=== PATIENT | male | born 1950 | race Caucasian/White ===

== ENCOUNTER 2017-03-23 03:12 | Emergency (ER) | payer BC ==
[2017-03-23] MEDS ORDERED: KETOROLAC 30 MG/ML 1 ML VIAL IVP STA (03:28)
[2017-03-23] MEDS ORDERED: ONDANSETRON 4 MG/2 ML VIAL IVP STA (03:28)
[2017-03-23] MEDS ORDERED: HYDROmorphone 1 MG/ML 1 ML SYRINGE IVP STA (03:28)
[2017-03-23] MEDS ORDERED: SODIUM CHLORIDE 0.9% 1,000 ML IV ONE (03:28)
--- NOTE | 2017-03-23 03:31 | ED ---
Abdominal Pain HPI - General Source: patient, RN notes reviewed Mode of arrival: ambulatory Limitations: no limitations <Baljit Peacock - Last Filed: 03/23/17 03:29> <Roberto Dwyer - Last Filed: 03/23/17 06:02> - General Chief Complaint: Abdominal Pain Stated Complaint: Flank Pain/Possible Kidney Time Seen by Provider: 03/23/17 03:20 - History of Present Illness Initial Comments: This a 66-year-old male presents emergency Department chief complaint right flank pain started yesterday. Patient states pain has not gotten any better. He states nothing makes the pain feel better or worse. He does have a history of kidney stones and states from what he remembers this seems similar. He states that he feels like he has to go to the bathroom but states he only has a little urine output. Denies any diarrhea or constipation. Patient had some nausea associated with the pain. Patient's been having hot and cold flashes but no known fever. He shouldn't denies chest pain, shortness breath, headache , dizziness. Patient had a prior hernia repair years ago. (Baljit Peacock) - Related Data Previous Rx's Medication Instructions Recorded Hydrocodone/Acetaminophen [[place] 1 each PO Q4HR PRN #12 tab 03/23/17 5-325] Allergies Allergy/AdvReac Type Severity Reaction Status Date / Time lactose AdvReac Nausea & Verified 03/23/17 03:19 Vomiting Review of Systems ROS Other: All systems not noted in ROS Statement are negative. <Baljit Peacock - Last Filed: 03/23/17 03:29> ROS Other: All systems not noted in ROS Statement are negative. <Roberto Dwyer - Last Filed: 03/23/17 06:02> ROS Statement: Those systems with pertinent positive or pertinent negative responses have been documented in the HPI. Past Medical History Past Medical History: No Reported History History of Any Multi-Drug Resistant Organisms: None Reported Additional Past Surgical History / Comment(s): ENT Past Psychological History: No Psychological Hx Reported Smoking Status: Never smoker Past Alcohol Use History: None Reported Past Drug Use History: None Reported <Baljit Peacock - Last Filed: 03/23/17 03:29> General Exam Limitations: no limitations General appearance: alert, in no apparent distress Head exam: Present: atraumatic, normocephalic, normal inspection Respiratory exam: Present: normal lung sounds bilaterally. Absent: respiratory distress, wheezes, rales, rhonchi, stridor Cardiovascular Exam: Present: regular rate, normal rhythm, normal heart sounds. Absent: systolic murmur, diastolic murmur, rubs, gallop, clicks GI/Abdominal exam: Present: soft, tenderness (Minimal right-sided), normal bowel sounds. Absent: distended, guarding, rebound, rigid Back exam: Present: CVA tenderness (R) (Mild). Absent: CVA tenderness (L) Neurological exam: Present: alert, oriented X3, CN II-XII intact Skin exam: Present: warm, dry, intact, normal color. Absent: rash <Baljit Peacock - Last Filed: 03/23/17 03:29> Medical Decision Making <Baljit Peacock - Last Filed: 03/23/17 03:29> - Lab Data Result diagrams: 03/23/17 03:36 03/23/17 03:36 - Radiology Data Radiology results: report reviewed (Computed tomography scan abdomen pelvis shows 2 mm calculi right posterior bladder, likely passed stone. Mild hydroureter.), image reviewed (KUB shows no acute process) <Roberto Dwyer - Last Filed: 03/23/17 06:02> - Medical Decision Making Patient reexamined twice by myself, Dr. Dwyer. Patient symptom-free at this time. Patient states symptoms were similar to previous kidney stone. Computed tomography scan was obtained. Patient and family were updated on results. ( Roberto Dwyer) - Lab Data Lab Results 03/23/17 03/23/17 03/23/17 Range/Units 03:36 03:36 03:36 WBC 12.1 H (3.8-10.6) k/uL RBC 5.30 (4.30-5.90) m/uL Hgb 16.9 (13.0-17.5) gm/dL Hct 49.3 (39.0-53.0) % MCV 93.0 (80.0-100.0) fL MCH 31.9 (25.0-35.0) pg MCHC 34.3 (31.0-37.0) g/dL RDW 13.8 (11.5-15.5) % Plt Count 187 (150-450) k/uL Neutrophils % 84 % Lymphocytes % 11 % Monocytes % 2 % Eosinophils % 1 % Basophils % 0 % Neutrophils # 10.2 H (1.3-7.7) k/uL Lymphocytes # 1.3 (1.0-4.8) k/uL Monocytes # 0.3 (0-1.0) k/uL Eosinophils # 0.2 (0-0.7) k/uL Basophils # 0.1 (0-0.2) k/uL Sodium 139 (137-145) mmol/L Potassium 5.1 (3.5-5.1) mmol/L Chloride 105 (98-107) mmol/L Carbon Dioxide 23 (22-30) mmol/L Anion Gap 11 mmol/L BUN 28 H (9-20) mg/dL Creatinine 1.20 (0.66-1.25) mg/dL Est GFR (MDRD) Af Amer >60 (>60 ml/min/1.73 sqM) Est GFR (MDRD) Non-Af >60 (>60 ml/min/1.73 sqM) Glucose 166 H (74-99) mg/dL Calcium 10.1 (8.4-10.2) mg/dL Total Bilirubin 1.4 H (0.2-1.3) mg/dL AST 44 (17-59) U/L ALT 61 (21-72) U/L Alkaline Phosphatase 76 (38-126) U/L Total Protein 7.9 (6.3-8.2) g/dL Albumin 4.8 (3.5-5.0) g/dL Amylase 37 (30-110) U/L Lipase 188 (23-300) U/L Urine Color Yellow Urine Appearance Clear (Clear) Urine pH 8.0 (5.0-8.0) Ur Specific [place] 1.022 (1.001-1.035) Urine Protein Negative (Negative) Urine Glucose (UA) Negative (Negative) Urine Ketones Negative (Negative) Urine Blood Negative (Negative) Urine Nitrite Negative (Negative) Urine Bilirubin Negative (Negative) Urine Urobilinogen <2.0 (<2.0) mg/dL Ur Leukocyte Esterase Negative (Negative) Disposition <Baljit Peacock - Last Filed: 03/23/17 03:29> Time of Disposition: 06:02 <Roberto Dwyer - Last Filed: 03/23/17 06:02> Clinical Impression: Ureterolithiasis Disposition: HOME SELF-CARE Condition: Stable Instructions: Kidney Stones (ED) Additional Instructions: Please follow-up to in the next couple days for recheck. Return for increased pain, fever, unable to urinate, worsening symptoms or other concerns. Prescriptions: Hydrocodone/Acetaminophen [B[place] 5-325] 1 each PO Q4HR PRN #12 tab PRN Reason: Pain Referrals: Juan Ray MD [Primary Care Provider] - 1-2 days
[2017-03-23 03:50] LABS: Basophils # (A) 0.1 k/uL (0-0.2); Basophils % (A) 0 %; CH 33.3; Eosinophils # (A) 0.2 k/uL (0-0.7); Eosinophils % (A) 1 %; HCT 49.3 % (39.0-53.0); HDW 2.78; HGB 16.9 gm/dL (13.0-17.5); Luc % (Auto) 1; Lymphocytes # (A) 1.3 k/uL (1.0-4.8); Lymphocytes % (A) 11 %; MCH 31.9 pg (25.0-35.0); MCHC 34.3 g/dL (31.0-37.0); Mean Platelet Volume 8.9; Monocytes # (A) 0.3 k/uL (0-1.0); Monocytes % (A) 2 %; Neutrophils # (A) 10.2 k/uL (1.3-7.7); Neutrophils % (A) 84 %; RDW 13.8 % (11.5-15.5); WBC 12.1 k/uL (3.8-10.6); WBC (Perox) 12.46
[2017-03-23 03:59] LABS: ALT 61 U/L (21-72); AST 44 U/L (17-59); Alkaline Phosphatase 76 U/L (38-126); Amylase 37 U/L (30-110); Anion Gap 11 mmol/L; Blood Urea Nitrogen 28 mg/dL (9-20); Calcium 10.1 mg/dL (8.4-10.2); Carbon Dioxide 23 mmol/L (22-30); Chloride 105 mmol/L (98-107); Glucose 166 mg/dL (74-99); Non-African American GFR(MDRD) >60 (>60 ml/min/1.73 sqM); Potassium 5.1 mmol/L (3.5-5.1); Sodium 139 mmol/L (137-145); Total Bilirubin 1.4 mg/dL (0.2-1.3); Total Protein 7.9 g/dL (6.3-8.2)
--- NOTE | 2017-03-23 04:00 | XR ---
EXAM: XR KUB, 1 View CLINICAL HISTORY: Reason: abdominal pain TECHNIQUE: Frontal supine view of the abdomen/pelvis. COMPARISON: No relevant prior studies available. FINDINGS: Gastrointestinal tract: Unremarkable. No dilation. No abnormal abdominal calcifications. Bones/joints: Unremarkable. IMPRESSION: Normal KUB x-ray.
[2017-03-23 04:38] LABS: Appearance,Urine Clear (Clear); Bilirubin,Urine Negative (Negative); Glucose,Urine (UA) Negative (Negative); Ketones,Urine Negative (Negative); Leukocyte Esterase,Urine Negative (Negative); Nitrite,Urine Negative (Negative); Protein,Urine Negative (Negative); Specific Gravity,Urine 1.022 (1.001-1.035); UA Billing (MACRO vs. MICRO) CHEM; Urobilinogen,Urine <2.0 mg/dL (<2.0)
--- NOTE | 2017-03-23 05:45 | CT ---
EXAM: CT Abdomen and Pelvis Without Intravenous Contrast CLINICAL HISTORY: Reason: Pain TECHNIQUE: Axial computed tomography images of the abdomen and pelvis without intravenous contrast. DLP is 1010.50 mGy-cm. This CT exam was performed using one or more of the following dose reduction techniques: automated exposure control, adjustment of the mA and/or kV according to patient size, and/or use of iterative reconstruction technique. COMPARISON: No relevant prior studies available. FINDINGS: Lower thorax: No acute findings. ABDOMEN: Liver: Scattered cysts noted in the liver. Gallbladder and bile ducts: Cholelithiasis. No ductal dilation. Pancreas: Unremarkable. No ductal dilation. Spleen: Unremarkable. No splenomegaly. Adrenals: Unremarkable. No mass. Kidneys and ureters: Simple cortical cysts noted in the lower pole of the right kidney and the upper pole of the left kidney respectively. Mild right hydroureter. There is a 2 mm calculus in the posterior lateral aspect of the right urinary bladder, possibly impacted. Stomach and bowel: Scattered colonic diverticulosis. No obstruction. No mucosal thickening. Appendix: No findings to suggest acute appendicitis. PELVIS: Bladder: See above. Reproductive: Unremarkable as visualized. ABDOMEN and PELVIS: Intraperitoneal space: Unremarkable. No free air. No significant fluid collection. Bones/joints: No acute fracture. No dislocation. Soft tissues: Unremarkable. Vasculature: Unremarkable. No abdominal aortic aneurysm. Lymph nodes: Unremarkable. No enlarged lymph nodes. IMPRESSION: Mild right hydroureter. There is a 2 mm calculus in the posterior lateral aspect of the right urinary bladder which may be impacted in this location or may have recently passed into the urinary bladder.
[2017-03-23 06:09] VITALS: BP 139/79; PULSE 76; RESP 16; TEMP 98.7
== END 2017-03-23 06:10 | disposition home or self-care (01) ==
LOC: EC 03:12
DX: N20.1 Calculus of ureter (principal); Z91.048 Other nonmedicinal substance allergy status
CPT/HCPCS: 99284; 96374; 96375 ×2; 96361 ×2; 36415; 80053; 82150; 83690; 85025; 81003; 74000; 74176; J2405; J1885; J1170

== ENCOUNTER 2019-03-10 08:06 | Day surgery (SDC) | payer BC, MEDICARE ==
[2019-03-08 12:35] VITALS: BMI 35.1
--- NOTE | 2019-03-10 07:34 | P.GSHP ---
History of Present Illness H&P Date: 03/10/19 CHIEF COMPLAINT: Colon screen HISTORY OF PRESENT ILLNESS: The patient is a 68-year-old male who presents for colon screen. Lower endoscopy was offered for further evaluation and management. PAST MEDICAL HISTORY: Please see list. PAST SURGICAL HISTORY: Please see list. MEDICATIONS: Please see list. ALLERGIES: Please see list. SOCIAL HISTORY: No illicit drug use FAMILY HISTORY: No reports of Crohn disease or ulcerative colitis. REVIEW OF ORGAN SYSTEMS: CONSTITUTIONAL: No reports of fevers or chills. PHYSICAL EXAM: VITAL SIGNS: Stable GENERAL: Well-developed pleasant in no acute distress. HEENT: No scleral icterus. Extraocular movements grossly intact. Moist buccal mucosa. NECK: Supple without lymphadenopathy. CHEST: Unlabored respirations. Equal bilateral excursions. CARDIOVASCULAR: Regular rate and rhythm. Distal 2+ pulses. ABDOMEN: Soft, nontender, nondistended. MUSCULOSKELETAL: No clubbing, cyanosis, or edema. ASSESSMENT: 1. Colon screen. PLAN: 1. Recommend proceeding with a lower endoscopy Past Medical History Past Medical History: Hyperlipidemia, Sleep Apnea/CPAP/BIPAP Additional Past Medical History / Comment(s): Recent dental procedure, now having sore gums, on Amoxicillin. Diverticulitisis, hx kidney stone X2, does not use CPAP. History of Any Multi-Drug Resistant Organisms: None Reported Past Surgical History: Hernia Repair Additional Past Surgical History / Comment(s): ENT surgery for sleep apnea, 3-4 colonoscopies with polyps removed. Past Anesthesia/Blood Transfusion Reactions: No Reported Reaction Past Psychological History: No Psychological Hx Reported Smoking Status: Never smoker Past Alcohol Use History: None Reported Past Drug Use History: None Reported - Past Family History Father Additional Family Medical History / Comment(s): Aneurysym. Medications and Allergies Home Medications Medication Instructions Recorded Confirmed Type Amoxicillin 875 mg PO BID 03/08/19 03/08/19 History Decongestant 0.5 tab PO BID 03/08/19 03/08/19 History Loratadine-Pseudoeph 10-240 mg 1 each PO DAILY 03/08/19 03/08/19 History [Claritin-D 24 Hr] [place]-3 Fatty Acids/Fish Oil [Fish 1 each PO DAILY 03/08/19 03/08/19 History Oil 1,000 mg Softgel] Allergies Allergy/AdvReac Type Severity Reaction Status Date / Time lactose AdvReac Nausea & Verified 03/08/19 12:18 Vomiting
[~2019-03-10 08:06] MED LIST: LACTATED RINGERS 1,000 ML IV SCH; LIDOCAINE 1% 20 ML VIAL (10MG/ML) FOR IV START INTRADERMA PRN; MIDAZOLAM 2 MG/2 ML VIAL IV PRN
[2019-03-10 08:27] VITALS: TEMP 98.1
[2019-03-10 08:40] LABS: Glucose,Whole Blood 113 mg/dL (75-99)
[2019-03-10] MEDS ORDERED: PROPOFOL 10 MG/ML 20 ML VIAL IV ONE (08:58)
--- NOTE | 2019-03-10 09:24 | P.PCN ---
Date of Procedure: 03/10/19 Description of Procedure: PREOPERATIVE DIAGNOSIS: Personal history of colon polyps Family history colon cancer Diverticulosis Colonoscopy screening POSTOPERATIVE DIAGNOSIS: Ascending colon polyp Personal history of colon polyps Family history colon cancer Diverticulosis Colonoscopy screening OPERATION: Colonoscopy with cold forceps biopsy ascending colon for polypectomy Colonoscopy to the ileocecal valve SURGEON: Apoorva Sultana MD. ANESTHESIA: MAC. INDICATIONS: The patient is a 68-year-old male who presents for colonoscopy screening. Last colonoscopy 5 years ago. Benefits and risks were described and informed consent was obtained. DESCRIPTION OF PROCEDURE: The patient had undergone GOLYTELY prep. He had been brought into the operating room and laid in the left lateral decubitus position. After adequate intravenous sedation, the rectum was examined with 2% lidocaine jelly. No external hemorrhoids were encountered. The prostate was unremarkable. The rectal tone was within normal limits. No lesions were palpated in the rectal vault. An Olympus colonoscope was advanced until the ileocecal valve and appendiceal orifice were clearly viewed. The prep was excellent with clear visualization of the mucosal folds. The scope was removed with visualization of each mucosal fold. Scattered diverticulosis was encountered. At ascending colon, 3 mm hyperplastic polyp was cold forceps biopsy. No evidence of focal colitis was found. Retroflexion of the scope demonstrated no internal hemorrhoids without active bleeding or inflammation. The colon was desufflated. The patient had tolerated the procedure well. Withdrawal time was over 6 minutes. FINDINGS: [place]ronchick preparation quality scale 1 (1-5) No internal hemorrhoids No external prolapsed hemorrhoids. No arteriovenous malformations. Moderate scattered diverticulosis without diverticulitis Redundant sigmoid colon requiring abdominal wall pressure No focal colitis Removal of 1 polyp: -At ascending colon, 3 mm hyperplastic polyp was cold forceps biopsy. RECOMMENDATIONS: Lower endoscopy in 5 years, 2023 Plan - Discharge Summary Discharge Rx Participant: No New Discharge Prescriptions: No Action Loratadine-Pseudoeph 10-240 mg [Claritin-D 24 Hr] 1 each PO DAILY Amoxicillin 875 mg PO BID Decongestant 0.5 tab PO BID [place]-3 Fatty Acids/Fish Oil [Fish Oil 1,000 mg Softgel] 1 each PO DAILY Discharge Medication List Amoxicillin 875 mg PO BID 03/08/19 [History] Decongestant 0.5 tab PO BID 03/08/19 [History] Loratadine-Pseudoeph 10-240 mg [Claritin-D 24 Hr] 1 each PO DAILY 03/08/19 [History] [place]-3 Fatty Acids/Fish Oil [Fish Oil 1,000 mg Softgel] 1 each PO DAILY 03/08/19 [History] Follow up Appointment(s)/Referral(s): Apoorva Sultana MD [STAFF PHYSICIAN] - As Needed Patient Instructions/Handouts: Diverticulosis (DC), Colorectal Polyps (DC), Diverticulosis Diet (GEN) Activity/Diet/Wound Care/Special Instructions: Repeat colonoscopy 5 years, 2023. RESUME FISH OIL 03/13/19 Discharge Disposition: HOME SELF-CARE
[2019-03-10 09:44] VITALS: BP 108/56; PULSE 66; RESP 16
== END 2019-03-10 10:09 | disposition home or self-care (01) ==
LOC: ORWHC2ENDO 08:06
PROVIDERS: ATTEND Surgery Plastic and Reconstructive Surgery
DX: Z12.11 Encounter for screening for malignant neoplasm of colon (principal); K57.90 Diverticulosis of intestine, part unspecified, without perforation or abscess without bleeding; D12.2 Benign neoplasm of ascending colon; Z80.0 Family history of malignant neoplasm of digestive organs; Z86.010 Personal history of colon polyps; E78.5 Hyperlipidemia, unspecified; Z79.2 Long term (current) use of antibiotics; Z79.899 Other long term (current) drug therapy; Z88.8 Allergy status to other drugs, medicaments and biological substances; G47.33 Obstructive sleep apnea (adult) (pediatric)
CPT/HCPCS: 88305; 45380; J2704

== ENCOUNTER → 2019-03-12 | Outpatient (CLI) | payer MEDICARE ==
--- NOTE | 2019-03-12 13:36 | CT ---
EXAMINATION TYPE: CT sinus wo con DATE OF EXAM: 03/12/2019 COMPARISON: None HISTORY: Allergies and chronic sinusitis CT DLP: 603.0 mGycm CONTRAST: 0 mL of Isovue 300 The paranasal sinuses are examined in the axial plane at 2 mm thick sections. Reconstructed images i n the coronal plane were obtained. There is dental amalgam scatter artifact The maxillary sinuses are clear. The ethmoid air cells are clear. The sphenoid sinuses are clear. The frontal sinuses are clear. The septum is evaluated. There is septal deviation to the left. The ostiomeatal units are patent. IMPRESSIONS: 1. Normal paranasal sinus study.
== END | disposition home or self-care (01) ==
LOC: RADCTMAIN 12:23
PROVIDERS: ATTEND Otolaryngology
DX: J32.9 Chronic sinusitis, unspecified (principal)
CPT/HCPCS: 70486

== ENCOUNTER 2019-06-11 05:37 | Emergency (ER) | payer MEDICARE ==
[2019-06-11] MEDS ORDERED: KETOROLAC 30 MG/ML 1 ML VIAL IVP STA (06:23)
[2019-06-11 06:24] LABS: Basophils % (A) 0 %; Eosinophils % (A) 0 %; HCT 47.3 % (39.0-53.0); HGB 16.4 gm/dL (13.0-17.5); Lymphocytes # (A) 0.9 k/uL (1.0-4.8); Lymphocytes % (A) 7 %; MCH 32.4 pg (25.0-35.0); MCHC 34.8 g/dL (31.0-37.0); Mean Platelet Volume 6.2; Monocytes # (A) 0.3 k/uL (0-1.0); Monocytes % (A) 2 %; Neutrophils # (A) 10.8 k/uL (1.3-7.7); Neutrophils % (A) 90 %; Platelet Count 199 k/uL (150-450); RBC 5.08 m/uL (4.30-5.90); RDW 12.2 % (11.5-15.5); WBC 12.1 k/uL (3.8-10.6)
[2019-06-11 06:33] LABS: Albumin 4.3 g/dL (3.5-5.0); Calcium 9.5 mg/dL (8.4-10.2); Potassium 4.4 mmol/L (3.5-5.1); Total Bilirubin 1.6 mg/dL (0.2-1.3); Total Protein 7.1 g/dL (6.3-8.2)
--- NOTE | 2019-06-11 06:37 | ED ---
General Adult HPI - General Source: patient, RN notes reviewed Mode of arrival: ambulatory Limitations: no limitations <Mayco Roach - Last Filed: 06/11/19 07:33> <Sharan Bragg - Last Filed: 06/11/19 11:11> - General Chief complaint: Abdominal Pain Stated complaint: Constipation/Nausea Time Seen by Provider: 06/11/19 06:13 - History of Present Illness Initial comments: 68-year-old male with a past medical history of diverticulosis presents to the emergency department for lower abdominal pain. Patient states it has been ongoing for about 6 hours. Patient states he thinks he is constipated. States he usually has a bowel movement daily. However yesterday he did not have a bowel movement. Patient states that around midnight he had a small episode of diarrhea. States he had his give him an enema because he thought he needed to have a bowel movement and did have a few small bowel movements. Patient states he did vomit once. Denies fevers or chills.Patient has no other complaints at this time including shortness of breath, chest pain, nausea or vomiting, headache, or visual changes. (Mayco Roach) - Related Data Home Medications Medication Instructions Recorded Confirmed [place]-3 Fatty Acids/Fish Oil [Fish 1 cap PO DAILY 03/08/19 06/11/19 Oil 1,000 mg Softgel] Cholecalciferol [Vitamin D3 (25 1,000 unit PO DAILY 06/11/19 06/11/19 Mcg = 1000 Iu)] Fluticasone Nasal [place] [Flonase 1 spray EA NOSTRIL HS 06/11/19 06/11/19 Nasal [place]] Magnesium 200 mg PO DAILY 06/11/19 06/11/19 Montelukast [Singulair] 10 mg PO HS 06/11/19 06/11/19 Allergies Allergy/AdvReac Type Severity Reaction Status Date / Time lactose AdvReac Nausea & Verified 06/11/19 07:52 Vomiting Review of Systems ROS Other: All systems not noted in ROS Statement are negative. <Mayco Roach - Last Filed: 06/11/19 07:33> ROS Other: All systems not noted in ROS Statement are negative. <Sharan Bragg - Last Filed: 06/11/19 11:11> ROS Statement: Those systems with pertinent positive or pertinent negative responses have been documented in the HPI. Past Medical History Past Medical History: No Reported History Additional Past Medical History / Comment(s): diverticulosis History of Any Multi-Drug Resistant Organisms: None Reported Additional Past Surgical History / Comment(s): ENT Past Psychological History: No Psychological Hx Reported Smoking Status: Never smoker Past Alcohol Use History: None Reported Past Drug Use History: None Reported <Mayco Roach - Last Filed: 06/11/19 07:33> General Exam Limitations: no limitations General appearance: alert, in no apparent distress Head exam: Present: atraumatic, normocephalic, normal inspection Eye exam: Present: normal appearance, PERRL, EOMI. Absent: scleral icterus, conjunctival injection, periorbital swelling ENT exam: Present: normal exam, mucous membranes moist Neck exam: Present: normal inspection, full ROM. Absent: tenderness, meningismus, lymphadenopathy Respiratory exam: Present: normal lung sounds bilaterally. Absent: respiratory distress, wheezes, rales, rhonchi, stridor Cardiovascular Exam: Present: regular rate, normal rhythm, normal heart sounds. Absent: systolic murmur, diastolic murmur, rubs, gallop, clicks GI/Abdominal exam: Present: soft, normal bowel sounds. Absent: distended, tenderness (No tenderness of the abdomen whatsoever), guarding, rebound, rigid Expanded GI/Abdominal exam: Absent: psoas sign, obturator sign, heel tap sign, Henderson's sign, Rovsing's sign, tenderness at [place]'s Point, ascites Neurological exam: Present: alert <Mayco Roach - Last Filed: 06/11/19 07:33> Course <Sharan Bragg - Last Filed: 06/11/19 11:11> Vital Signs 06/11/19 06/11/19 06/11/19 05:43 06:47 07:55 Temperature 97.8 F 97.7 F Pulse Rate 92 72 76 Respiratory 20 16 18 Rate Blood Pressure 142/87 154/89 142/84 O2 Sat by Pulse 97 96 98 Oximetry - Reevaluation(s) Reevaluation #1: 06/11/19 11:10 PA supervision: I did personally evaluate the case and did discuss the findings. Patient does present with hematuria as well as flank and abdominal pain. The presentation is consistent with a kidney stone he is cautioned come back if any issues continue. I did review the workup. I do agree with the assessment and plan. (Sharan Bragg) Medical Decision Making - Lab Data Result diagrams: 06/11/19 06:14 06/11/19 06:14 <Mayco Roach - Last Filed: 06/11/19 07:33> - Lab Data Result diagrams: 06/11/19 06:14 06/11/19 06:14 <Sharan Bragg - Last Filed: 06/11/19 11:11> - Medical Decision Making 68-year-old male presents to the emergency department for possible constipation. Patient states he feels as if he needs to have a bowel movement. States he did vomit once and has been trying to have a bowel movement all night. States he did have several small bowel movements. Vitals are stable. Patient is afebrile. Denies history of fevers at home. Examination is benign. Patient has no abdominal tenderness whatsoever. No CVA tenderness. He is complaining of some mild left flank pain but states this feels nothing like his kidney stone from 2 years ago. CBC was obtained which shows a white count 12.1 which is likely reactive in nature. CMP does show evidence of some mild dehydration, patient was given a liter of fluids. Urinalysis shows moderate blood. I did obtain an x-ray which shows paucity of bowel gas, could be secondary to gastroenteritis. I recommended a CAT scan at this time to further evaluate the bowel as well as the possibility of a kidney stone. However patient states his pain is at a 0 right now and he would rather go home and return if he has worsening of symptoms. Refuses CAT scan. Patient will be discharged to follow up with primary care. He will return if he has any worsening symptoms. (Mayco Roach) - Lab Data Lab Results 06/11/19 06/11/19 06/11/19 Range/Units 06:14 06:14 06:47 WBC 12.1 H (3.8-10.6) k/uL RBC 5.08 (4.30-5.90) m/uL Hgb 16.4 (13.0-17.5) gm/dL Hct 47.3 (39.0-53.0) % MCV 93.0 (80.0-100.0) fL MCH 32.4 (25.0-35.0) pg MCHC 34.8 (31.0-37.0) g/dL RDW 12.2 (11.5-15.5) % Plt Count 199 (150-450) k/uL Neutrophils % 90 % Lymphocytes % 7 % Monocytes % 2 % Eosinophils % 0 % Basophils % 0 % Neutrophils # 10.8 H (1.3-7.7) k/uL Lymphocytes # 0.9 L (1.0-4.8) k/uL Monocytes # 0.3 (0-1.0) k/uL Eosinophils # 0.0 (0-0.7) k/uL Basophils # 0.0 (0-0.2) k/uL Sodium 140 (137-145) mmol/L Potassium 4.4 (3.5-5.1) mmol/L Chloride 107 (98-107) mmol/L Carbon Dioxide 24 (22-30) mmol/L Anion Gap 9 mmol/L BUN 29 H (9-20) mg/dL Creatinine 1.55 H (0.66-1.25) mg/dL Est GFR (CKD-EPI)AfAm 53 (>60 ml/min/1.73 sqM) Est GFR (CKD-EPI)NonAf 46 (>60 ml/min/1.73 sqM) Glucose 143 H (74-99) mg/dL Calcium 9.5 (8.4-10.2) mg/dL Total Bilirubin 1.6 H (0.2-1.3) mg/dL AST 47 (17-59) U/L ALT 76 H (21-72) U/L Alkaline Phosphatase 50 (38-126) U/L Total Protein 7.1 (6.3-8.2) g/dL Albumin 4.3 (3.5-5.0) g/dL Amylase 47 (30-110) U/L Lipase 186 (23-300) U/L Urine Color Yellow Urine Appearance Turbid (Clear) Urine pH 5.5 (5.0-8.0) Ur Specific [place] 1.029 (1.001-1.035) Urine Protein Trace H (Negative) Urine Glucose (UA) Negative (Negative) Urine Ketones Negative (Negative) Urine Blood Moderate H (Negative) Urine Nitrite Negative (Negative) Urine Bilirubin Negative (Negative) Urine Urobilinogen 2.0 (<2.0) mg/dL Ur Leukocyte Esterase Negative (Negative) Urine RBC 10 H (0-5) /hpf Urine WBC 1 (0-5) /hpf Hyaline Casts 1 (0-2) /lpf Urine Mucus Rare H (None) /hpf Disposition Is patient prescribed a controlled substance at d/c from ED?: No Time of Disposition: 07:40 <Mayco Roach - Last Filed: 06/11/19 07:33> <Sharan Bragg - Last Filed: 06/11/19 11:11> Clinical Impression: Abdominal pain Disposition: HOME SELF-CARE Condition: Good Instructions (If sedation given, give patient instructions): Abdominal Pain (ED) Additional Instructions: Please follow up with primary care in 1-2 days. If you have worsening symptoms be sure to return to the emergency department for further evaluation. Referrals: Juan Ray MD [Primary Care Provider] - 1-2 days
--- NOTE | 2019-06-11 06:39 | XR ---
EXAM: XR Abdomen, 2 Views CLINICAL HISTORY: ITS.REASON XR Reason: abdominal pain TECHNIQUE: Frontal view of the abdomen/pelvis with upright view of the abdomen. COMPARISON: Radiographs dated 03/23/[address] abdomen pelvis dated 03/23/17 FINDINGS: Intraperitoneal space: No free air. Gastrointestinal tract: Suboptimal evaluation of the bowel gas pattern due to paucity of bowel gas. No obvious bowel dilatation. Bones/joints: Degenerative changes of the spine. IMPRESSION: Suboptimal evaluation of the bowel gas pattern due to paucity of bowel gas. No obvious bowel dilatation.
[2019-06-11] MEDS ORDERED: SODIUM CHLORIDE 0.9% 1,000 ML IV STA (06:56)
[2019-06-11 07:18] LABS: Appearance,Urine Turbid (Clear); Bilirubin,Urine Negative (Negative); Blood,Urine Moderate (Negative); Color,Urine Yellow; Glucose,Urine (UA) Negative (Negative); Hyaline Casts,Urine 1 /lpf (0-2); Ketones,Urine Negative (Negative); Leukocyte Esterase,Urine Negative (Negative); Mucus,Urine Rare /hpf; Nitrite,Urine Negative (Negative); PH, Urine 5.5 (5.0-8.0); Protein,Urine Trace (Negative); RBC,Urine 10 /hpf (0-5); Specific Gravity,Urine 1.029 (1.001-1.035)
[2019-06-11 08:39] VITALS: BP 142/84; PULSE 76; RESP 18; TEMP 97.7
== END 2019-06-11 07:55 | disposition home or self-care (01) ==
LOC: EC 05:37
DX: R10.30 Lower abdominal pain, unspecified (principal); E86.0 Dehydration; R31.9 Hematuria, unspecified; R11.10 Vomiting, unspecified; Z91.018 Allergy to other foods; Z53.20 Procedure and treatment not carried out because of patient's decision for unspecified reasons
CPT/HCPCS: 99284; 96374; 96361; 36415; 80053; 82150; 83690; 85025; 81001; 74018; J1885

== ENCOUNTER → 2023-01-20 | Outpatient (CLI) | payer MEDICARE ==
[2023-01-20 13:03] VITALS: BP 157/81; PULSE 72; RESP 18; TEMP 98.9
--- NOTE | 2023-01-20 14:32 | P.PAINPG ---
PQRS Measure Charge Sheet Comment: HISTORY OF PRESENT ILLNESS: 72 yr old as a referral from Dr Ray presents today w severe and chronic facial pain secondary to Trigeminal Neuralgia for evaluation. Pt states pain level is provoked at 6 /10 in intensity, constant, localized in the L side of his face, throbbing, pressure in character w/o shooting pain. Pain is provoked by chewing or brushing teeth. Pain is alleviated by medications (Neurontin, Tyl), massaging, repositioning and rest. Oswestry pain score at 7. PMH: OA, JUDIE, Hyperlipidemia PSH: Colonoscopy x4 w Polypectomies (2019), Hernia Repair SH: Negative x3 FH: Fa- Aneurysm All: See list Meds: See list REVIEW OF ORGAN SYSTEMS: CONSTITUTIONAL: No fevers or chills. No recent weight loss. NEUROLOGICAL: + numbness and tingling along the distal extremities. No seizure disorders or headaches. MUSCULOSKELETAL: + pain PSYCHIATRIC: Denies current depression or suicidal thoughts. Physical Examinations : Constitutional : Cooperative , not in acute distress . Neurologic : Cranial nerve II to XII intact. No focal neurological deficits. Psychiatric : alert & oriented x 3. Matching mood & appropriate affect. Judgment & insight intact. Musculoskeletal : Cervical Spine Motor strength in the deltoid and biceps: Normal right side. Normal Left side Motor strength biceps and the wrist extensors: Normal right side . Normal left side Motor strength in the triceps muscle: Normal right side. Normal left side Deep tendon reflexes: Normal at the biceps. Normal at Brachioradialis. Normal at triceps Vertebral body tenderness to deep palpation over Cervical facet loading test: positive bilaterally Spurling test: positive bilaterally Neck distraction test: positive bilaterally Anaya sign: positive bilaterally Lumbar spine Motor strength lower extremities ,thigh and legs 5/5 Right side , 5/5 Left side Deep tendon reflexes : Normal Knee Jerk. Normal Ankle Jerk Vertebral body tenderness over Gutierrez Test positive Lumbar facet Loading Test: positive Right / positive Left Range of motion of the lumbar spine Flexion 30 degrees, extension 10 degrees Straight Leg Raise test: Left/ Right positive at degree Thania test: positive right / positive left. Severe tenderness over the Sacroiliac joint on the Right / Left sides Gaenslen test: positive bilaterally Seated flexion test: positive bilaterally. Sacral spine : Severe tenderness over the Sacroiliac joint: right side / left side Range of motion: Flexion of the lumbar spine <60 degrees Range of motion: Extension of the lumbar spine <20 degrees Gaenslen's Test positive Froylan's Test positive Thania test: positive right side / left side Thigh Thrust Test Sacral Thrust Test Imaging: None on file Assessment/ Plan : Trigeminal Neuralgia Recommendation of L Trigeminal Nerve Block. May need a series of injections for optimal pain relief. Risks, benefits of procedure discussed and patient verbalized understanding. Admits to aspirin or anti- coagulant use or medical history of diabetes. Protocol for discontinuation/ continuation of medications georgiana procedure discussed. Minimal anesthesia provided, if clinically indicated, consisting of Versed and Fentanyl. All questions answered. I have spent greater than 30 minutes on patient care today. Dr Walters was available by phone for the evaluation of this patient. The time was used to review the medical records including relevant urine studies and Prescription history (MAPs), review of the available imaging, evaluation and examination of the patient, coordination of care with the medical staff and if applicable referring physicians, as well as creation of the medical record PQRS Narrative: Smoking Status Never smoker Home Medications: Ambulatory Orders Eugene-3 Fatty Acids/Fish Oil [Fish Oil 1,000 mg Softgel] 1 cap PO DAILY 03/08/19 Cholecalciferol [Vitamin D3 (25 Mcg = 1000 Iu)] 1,000 unit PO DAILY 06/11/19 Fluticasone Nasal [place] [Flonase Nasal [place]] 1 spray EA NOSTRIL HS 06/11/19 Magnesium 200 mg PO DAILY 06/11/19 Montelukast [Singulair] 10 mg PO HS 06/11/19 Controlled Substance Measures - Controlled Substance Measures Is patient prescribed a controlled substance at discharge?: No
== END ==
LOC: PNWHC3 12:34
PROVIDERS: ATTEND Specialist
DX: G50.0 Trigeminal neuralgia (principal); M53.3 Sacrococcygeal disorders, not elsewhere classified; G89.29 Other chronic pain; M19.90 Unspecified osteoarthritis, unspecified site; G47.33 Obstructive sleep apnea (adult) (pediatric); E78.5 Hyperlipidemia, unspecified; Z91.011 Allergy to milk products
CPT/HCPCS: 99211

== ENCOUNTER 2023-02-04 06:50 | Day surgery (SDC) | payer MEDICARE ==
[~2023-02-04 06:50] MED LIST changes: -LIDOCAINE 1% 20 ML VIAL (10MG/ML) FOR IV START INTRADERMA PRN; -MIDAZOLAM 2 MG/2 ML VIAL IV PRN
[2023-02-04 07:22] VITALS: TEMP 98.5
[2023-02-04 07:25] LABS: Glucose,Whole Blood 129 mg/dL (70-110)
[2023-02-04] MEDS ORDERED: DEXAMETHASONE SOD PHOSPHATE 10 MG/ML 1 ML VIAL ONE (07:49)
[2023-02-04] MEDS ORDERED: IOPAMIDOL M200 10 ML VIAL ONE (07:49)
[2023-02-04 08:05] VITALS: RESP 18
--- NOTE | 2023-02-04 08:12 | FL ---
Intraoperative/procedural fluoroscopic services were provided for left trigeminal injection. Total fl uoroscopy time is 7.6 seconds with a total of 1 submitted image to PACS. Total DAP [id number] ease see the operative note for further details.
--- NOTE | 2023-02-04 08:20 | P.PCN ---
Date of Procedure: 02/04/23 Procedure(s) Performed: Preoperative diagnoses= 1- left trigeminal neuralgia Postoperative diagnoses= 1-left trigeminal neuralgia Procedure= left trigeminal nerve block under fluoroscopy guidance (fluoroscopy image available in the radiology department ) Anesthesia= local anesthesia with lidocaine 1% 2 mL for skin and subcu infiltration. Estimated blood loss=minimal. Procedure indication= the patient had a history of severe chronic left-sided facial pain with radiation to the mandible and the tongue, diagnosed with trigeminal neuralgia, patient failed conservative management, patient admitted today to have left-sided trigeminal nerve block Procedure description= the patient was seen and identified in the preoperative holding area, risks and benefits and alternative of the procedure and possible complications discussed with the patient, and he agreed with the preceding, patient signed the consent, patient taken to the operating room placed in supine position, the facial area prepped with chlorhexidine 3 then under strict sterile technique, 1-1/2 inch lateral to the left side mouth opening, local infiltration of the skin and subcutaneous tissue with lidocaine 1% 2 mL, then 22-gauge Quincke Needle advanced slowly and the lateral edge of the side of the mouth, and advanced towards the forearm OVAL , under fluoroscopy guidance, I checked the track of the needle by examining the inside the mouth, and it showed that the needle was not passing through the oral cavity, then I changed the sterile gloves, then the needle advanced slowly towards the forearm and oval, and recheck the needle placement with AP and lateral view, then after negative aspiration for heme or CSF, Isovue-200, half mL injected that showed appropriate spread through the forearm and oval, then after negative aspiration dexamethasone preservative-free, 20 mg injected slowly, patient tolerated the procedure well without any complications, and then the needle flushed with normal saline, and the needles removed, patient tolerated the procedure well without any complications , and we will repeat the procedure within 2-3 weeks
[2023-02-04 08:28] VITALS: BP 145/77; PULSE 82
== END 2023-02-04 08:30 | disposition home or self-care (01) ==
LOC: ORPAIN 06:50
PROVIDERS: ATTEND Specialist
DX: G50.0 Trigeminal neuralgia (principal); Z91.012 Allergy to eggs; Z91.040 Latex allergy status
CPT/HCPCS: 64400; J1100; Q9966; 64445

== ENCOUNTER 2024-04-09 12:38 | Day surgery (SDC) | payer MEDICARE ==
[~2024-04-09 12:38] MED LIST changes: -LACTATED RINGERS 1,000 ML IV SCH; +LIDOCAINE 1% (10MG/ML) FOR IV START INTRADERMA PRN
[2024-04-09] MEDS: IV FLUID CONTINUATION 1,000 ML IV ONE (13:17)
[2024-04-09 13:21] VITALS: TEMP 97.6
[2024-04-09] MEDS: LACTATED RINGERS 1,000 ML IV SCH (13:26)
[2024-04-09] MEDS ORDERED: PROPOFOL 10 MG/ML 20 ML VIAL IV ONE (14:52)
--- NOTE | 2024-04-09 15:10 | P.PCN ---
Date of Procedure: 04/09/24 Procedure(s) Performed: BRIEF HISTORY: Patient is a 73-year-old pleasant white male scheduled for an elective colonoscopy as a part of screening for colon cancer and family history of colon cancer. His mother was diagnosed with colon cancer at age 80. He also was noted to have colon polyps during his last colonoscopy 5 years ago. PROCEDURE PERFORMED: Colonoscopy with snare polypectomy. PREOPERATIVE DIAGNOSIS: Screening for colon cancer/history of colon polyps and family history of colon cancer. IV sedation per Anesthesia. PROCEDURE: After informed consent was obtained, the patient, was brought into the endoscopy unit. IV sedation was administered by Anesthesia under continuous monitoring. Digital rectal examination was normal. Initially the Olympus CF-160 flexible video colonoscope was then inserted in the rectum, gradually advanced into the cecum without any difficulty. Careful examination was performed as the scope was gradually being withdrawn. Ileocecal valve and the appendiceal orifice were visualized and appeared normal. Prep was excellent. Mucosa of the cecum, ascending colon, transverse colon, appeared normal. The descending colon there was a 5 mm polyp that was removed by cold snare polypectomy. Scattered left- sided diverticulosis seen. Rest of the descending colon, sigmoid colon, and rectum appeared normal. Retroflexion was performed in the rectum and no lesions were seen. The patient tolerated the procedure well. IMPRESSION: 5 mm descending colon polyp status post cold snare polypectomy Scattered sigmoid diverticulosis RECOMMENDATIONS: Findings of this examination were discussed with the patient as well as his family.. Advised to follow with the biopsy results and recommended repeat colonoscopy in 5 years because of the family history of colon cancer
[2024-04-09 15:20] VITALS: BP 120/79; PULSE 78; RESP 18
[2024-04-16 11:46] LABS: Glucose,Whole Blood 100 mg/dL (70-110)
== END 2024-04-09 15:45 | disposition home or self-care (01) ==
LOC: ORWHC2ENDO 12:38
PROVIDERS: ATTEND Internal Medicine Gastroenterology
DX: Z86.010 Personal history of colon polyps
CPT/HCPCS: 45385; 88305

== ENCOUNTER → 2024-06-09 | Outpatient (CLI) | payer MEDICARE ==
[2024-06-09 15:59] LABS: Basophils # (A) 0.06 X 10*3/uL (0.00-0.10); Basophils % (A) 1.1 %; Eosinophils # (A) 0.08 X 10*3/uL (0.04-0.35); Eosinophils % (A) 1.5 %; HCT 43.4 % (39.6-50.0); HGB 15.1 g/dL (13.0-17.0); Lymphocytes # (A) 1.43 X 10*3/uL (0.90-5.00); Lymphocytes % (A) 26.7 %; MCH 31.8 pg (27.0-32.0); MCHC 34.8 g/dL (32.0-37.0); MCV 91.4 FL (80.0-97.0); Mean Platelet Volume 9.4 FL (9.5-12.2); Monocytes # (A) 0.37 X 10*3/uL (0.20-1.00); Monocytes % (A) 6.9 %; NRBC Per 100 WBC 0 X 10*3/uL (0.00-0.01); Neutrophils % (A) 63.6 %; Platelet Count 182 X 10*3/uL (140-440); RBC 4.75 X 10*6/uL (4.40-5.60); RDW 12.1 % (11.5-14.5); WBC 5.35 X 10*3/uL (4.50-10.00)
[2024-06-09 16:11] LABS: ALT 44 U/L (10-49); AST 39 U/L (14-35); Albumin 4.5 g/dL (3.8-4.9); Alkaline Phosphatase 63 U/L (41-126); Blood Urea Nitrogen 18.6 mg/dL (9.0-27.0); Calcium 9.3 mg/dL (8.7-10.3); Carbon Dioxide 23.6 mmol/L (21.6-31.8); Chloride 107 mmol/L (96-109); Globulin 2.5 g/dL (1.6-3.3); Glucose 130 mg/dL (70-110); Potassium 4.5 mmol/L (3.5-5.5); Sodium 141 mmol/L (135-145); Total Bilirubin 1.1 mg/dL (0.3-1.2)
== END | disposition home or self-care (01) ==
LOC: LABWHC1 09:06
PROVIDERS: ATTEND Psychiatry & Neurology Neurology
DX: G50.0 Trigeminal neuralgia (principal); Z79.899 Other long term (current) drug therapy
CPT/HCPCS: 36415; 80053; 80183; 85025